=== PATIENT | male | born 1940 | race Caucasian/White ===

== ENCOUNTER 2016-10-17 06:23 | Day surgery (SDC) | payer OTHER ==
--- NOTE | ~2016-10-17 | EGD ---
EGD REPORT [facility] [place] [address] [place] [address] NAME: GUANAKITO CARLOS : [birth year] STATUS : REG [facility]#: [id number] AGE: 76 ADM/REG DATE : 10/17/16 MR#: [id number] REPORT SERV DATE: 10/17/16 DICTATED BY: DANIELITO MAURO DATE: 10/17/16 REPORT STATUS : Draft TRANSCRIBED BY: [facility] DATE: 10/17/16 Endoscopy Center Patient Name: Guanakito Carlos Date of : 1940 Attending MD: DANIELITO MAURO MD Procedure Date No Time: 10/17/2016 Procedure: Upper GI endoscopy Indications: Dyspepsia, Dysphagia Referring MD: Jaylen Cole Medicines: Propofol per Anesthesia Complications: No immediate complications. Procedure: Pre-Anesthesia Assessment: - ASA Grade Assessment: II - A patient with mild systemic disease. After obtaining informed consent, the endoscope was passed under direct vision. Throughout the procedure, the patient's blood pressure, pulse, and oxygen saturations were monitored continuously. The GIF [id number] was introduced through the mouth, and advanced to the second part of duodenum. The upper GI endoscopy was accomplished without difficulty. The patient tolerated the procedure well. Findings: A benign-appearing, intrinsic mild stenosis was found and was traversed. A guidewire was placed and the scope was withdrawn. Dilation was performed with a Savary dilator with no resistance at 48 Fr, no resistance at 51 Fr and no resistance at 54 Fr. Diffuse mild inflammation characterized by erosions and erythema was found in the stomach. The examined duodenum was normal. Impression: - Benign-appearing esophageal stricture. Dilated. - Chronic gastritis. - Normal examined duodenum. Recommendation: - Discharge patient to home. Procedure Code(s): --- Professional --- 35347, Esophagogastroduodenoscopy, flexible, transoral; with insertion of guide wire followed by passage of dilator(s) through esophagus over guide wire Diagnosis Code(s): --- Professional --- K22.2, Esophageal obstruction EGD REPORT [facility] [place] [address] [place]. [address] NAME: GUANAKITO CARLOS : [birth year] STATUS : REG [facility] PAT#: [id number] AGE: 76 ADM/REG DATE : 10/17/16 MR#: [id number] REPORT SERV DATE: 10/17/16 DICTATED BY: DANIELITO MAURO. DATE: 10/17/16 REPORT STATUS : Draft TRANSCRIBED BY: [employer] DATE: 10/17/16 K29.50, Unspecified chronic gastritis without bleeding K30, Functional dyspepsia R13.10, Dysphagia, unspecified CPT copyright 2013 [employer]. All rights reserved. The codes documented in this report are preliminary and upon automation qa analyst review may be revised to meet current compliance requirements. Danielito Mauro MD DANIELITO MAURO MD 10/17/2016 7:37 AM This report has been signed electronically. Number of Addenda: 0 Note Initiated On: 10/17/2016 7:22 AM Scope Withdrawal Time 0 hours 0 minutes 0 seconds [address] [facility] [place] [address]
[~2016-10-17 06:23] MED LIST: ALTA5 PO; AMITIZA8 MCG PO; ASAB PO; BUSPAR15 M1 PO; FLOMAX4 PO; GLUCPH PO; LEVAQUIN5T PO; LOP50 PO; LOPID6 PO; NEXIUM40 PO; NORCO1 TAB PO; PEP20 PO; PRAVACHOL80 MG PO; RAMIPRIL PO; REFRESH OPH SO0.3 ML OPH; SEROQUEL25 PO; SYN.05 PO; TAMIFLU PO; X5 PO; ZOCOR20 PO
== END 2016-10-17 23:59 | disposition home health service (06) ==
LOC: DMU 06:23
PROVIDERS: Internal Medicine Gastroenterology
PROC: 0D758ZZ Dilation of Esophagus, Via Natural or Artificial Opening Endoscopic (ICD-10-PCS; principal; 2016-10-17 08:00)
DX: K22.2 Esophageal obstruction (principal); K29.50 Unspecified chronic gastritis without bleeding; E11.9 Type 2 diabetes mellitus without complications; I10 Essential (primary) hypertension; E78.5 Hyperlipidemia, unspecified; E03.9 Hypothyroidism, unspecified; E78.00 Pure hypercholesterolemia, unspecified; K21.0 Gastro-esophageal reflux disease with esophagitis; Z79.82 Long term (current) use of aspirin; Z79.899 Other long term (current) drug therapy; Z88.8 Allergy status to other drugs, medicaments and biological substances; Z98.890 Other specified postprocedural states; Z87.891 Personal history of nicotine dependence; Z87.442 Personal history of urinary calculi
CPT/HCPCS: 82962